=== PATIENT | male | born 1970 | race American Indian/Alaskan Native ===

== ENCOUNTER 2019-08-06 19:06 | Emergency (ER) | payer OTHER ==
[2019-08-06 19:21] VITALS: BP 120/65
[2019-08-06] MEDS ORDERED: dexAMETHasone 20 MG/5 ML VIAL IV ONE (19:40)
[2019-08-06] MEDS ORDERED: FAMOTIDINE 20 MG/2 ML INJ IV ONE (19:40)
[2019-08-06] MEDS ORDERED: diphenhydrAMINE 50 MG/ML VIAL IV ONE (19:40)
[2019-08-06] MEDS ORDERED: SODIUM CHLORIDE 0.9% 1000 ML 1,000 ML IV ONE (19:40)
--- NOTE | 2019-08-06 19:40 | Emergency Department Report ---
Blank Doc - Documentation Documentation: 48-year-old male that presents with rash after taking percocet and Colace. no angioedena. This initial assessment/diagnostic orders/clinical plan/treatment(s) is/are subject to change based on patient's health status, clinical progression and re- assessment by fellow clinical providers in the ED. Further treatment and workup at subsequent clinical providers discretion. Patient/guardians urged not to elope from the ED as their condition may be serious if not clinically assessed and managed. Initial orders include: 1- Patient sent to [facility] for further evaluation and treatment. 2- treatment needed
--- NOTE | 2019-08-06 22:44 | Emergency Department Report ---
ED Allergic Reaction HPI - General Chief complaint: Skin Rash Stated complaint: RASH ALL OVER Time Seen by Provider: 08/06/19 19:39 Source: patient, EMS Mode of arrival: Ambulatory Limitations: No Limitations - History of Present Illness Initial Comments: Patient is a 49-year-old -[place] Citizen male with a history of hypertension who presents to the ED with complaint of acute onset persistent diffuse itchy erythematous maculopapular urticarial rashes throughout for the last 24 hours. Patient is status post hernia surgery 5 days ago and states that he has been taking Percocet, ibuprofen and Colace for the last 5 days after surgery. Patient states that he developed acute onset persistent itchy diffuse erythematous maculopapular rash 24 hours ago and that in the last 12 hours these itching and rashes have worsened diffusely. Patient denies swollen lips, swollen tongue, dysphagia, dysphonia, shortness of breath, nausea, vomiting, diarrhea, cough, abdominal pain, nasal and sinus congestion, facial swelling, dizziness, syncope, fever and chills. MD Complaint: allergic reaction, hives -: Sudden, hour(s) (24) Exposure: medication Symptoms: rash, itching. denies: facial swelling, lip swelling, difficulty swallowing, difficulty breathing, orolingual swelling, hoarseness, syncopy, dizziness, nausea, vomiting, abdominal pain Severity: severe Treatment Prior to Arrival: none Previous Allergy History: none - Related Data Previous Rx's Medication Instructions Recorded Last Taken Type Famotidine [Pepcid] 20 mg PO Q12H #24 tablet 08/06/19 Unknown Rx Prednisone [predniSONE 10 mg 10 mg PO .TAPER #21 tab.ds.pk 08/06/19 Unknown Rx (6-Day Pack, 21 Tabs)] diphenhydrAMINE [Benadryl CAP] 25 mg PO Q6HR PRN #30 capsule 08/06/19 Unknown Rx Allergies Allergy/AdvReac Type Severity Reaction Status Date / Time No Known Allergies Allergy Unverified 08/06/19 19:40 ED Review of Systems ROS: Stated complaint: RASH ALL OVER Other details as noted in HPI Constitutional: denies: chills, fever Eyes: denies: eye pain, eye discharge, vision change ENT: denies: ear pain, throat pain Respiratory: denies: cough, shortness of breath, wheezing Cardiovascular: denies: chest pain, palpitations Endocrine: no symptoms reported Gastrointestinal: denies: abdominal pain, nausea, diarrhea Genitourinary: denies: urgency, dysuria Musculoskeletal: denies: back pain, joint swelling, arthralgia Skin: rash, change in color, pruritus, other (Diffuse erythematous urticarial maculopapular rash). denies: lesions Neurological: denies: headache, weakness, paresthesias Psychiatric: denies: anxiety, depression Hematological/Lymphatic: denies: easy bleeding, easy bruising ED Past Medical Hx - Past Medical History Previous Medical History?: No - Surgical History Past Surgical History?: Yes Additional Surgical History: HERNIA - Social History Smoking Status: Never Smoker Substance Use Type: None - Medications Home Medications: Home Medications Medication Instructions Recorded Confirmed Last Taken Type Famotidine [Pepcid] 20 mg PO Q12H #24 tablet 08/06/19 Unknown Rx Prednisone [predniSONE 10 mg 10 mg PO .TAPER #21 tab.ds.pk 08/06/19 Unknown Rx (6-Day Pack, 21 Tabs)] diphenhydrAMINE [Benadryl CAP] 25 mg PO Q6HR PRN #30 capsule 08/06/19 Unknown Rx ED Physical Exam - General Limitations: No Limitations General appearance: alert, in no apparent distress - Head Head exam: Present: atraumatic, normocephalic, normal inspection - Eye Eye exam: Present: normal appearance, PERRL, EOMI - ENT ENT exam: Present: normal exam, normal orophraynx, mucous membranes moist, TM's normal bilaterally, normal external ear exam - Neck Neck exam: Present: normal inspection, full ROM - Respiratory Respiratory exam: Present: normal lung sounds bilaterally. Absent: respiratory distress, wheezes, rhonchi, chest wall tenderness, accessory muscle use, decreased breath sounds - Cardiovascular Cardiovascular Exam: Present: regular rate, normal rhythm, normal heart sounds. Absent: systolic murmur, diastolic murmur, rubs, gallop - GI/Abdominal GI/Abdominal exam: Present: soft, normal bowel sounds. Absent: distended, tenderness, hyperactive bowel sounds, hypoactive bowel sounds - Extremities Exam Extremities exam: Present: normal inspection, full ROM, normal capillary refill - Back Exam Back exam: Present: normal inspection, full ROM. Absent: tenderness, CVA tenderness (R), CVA tenderness (L), muscle spasm, paraspinal tenderness - Neurological Exam Neurological exam: Present: alert, oriented X3, CN II-XII intact, normal gait, reflexes normal - Psychiatric Psychiatric exam: Present: normal affect, normal mood - Skin Skin exam: Present: warm, dry, intact, normal color, rash (Diffuse erythematous maculopapular urticarial rashes), erythema, urticaria ED Course Vital Signs 08/06/19 19:18 Temperature 98.8 F Pulse Rate 74 Respiratory 18 Rate Blood Pressure 120/65 O2 Sat by Pulse 97 Oximetry ED Medical Decision Making - Medical Decision Making This is a 49-year-old male who presented to the ED with acute onset persistent itchy erythematous maculopapular urticarial rashes after taking medications. In the ED, patient is alert and oriented x3 and is not in any distress. Patient was treated in the ED with steroid, Benadryl and Pepcid. On reevaluation, patient's itching resolved with medications. Patient was discharged home on medications and advised to follow-up with his primary care physician in 5 to 7 days for reevaluation or return to the ED immediately if symptoms get worse. - Differential Diagnosis acute allergic reaction; Urticaria; Irritant dermatitis; Itching Critical care attestation.: If time is entered above; I have spent that time in minutes in the direct care of this critically ill patient, excluding procedure time. ED Disposition Clinical Impression: Itching with irritation, Acute urticaria Acute allergic reaction Qualifiers: Encounter type: initial encounter Qualified Code(s): T78.40XA - Allergy, unspecified, initial encounter Disposition: - TO HOME OR SELFCARE Is pt being admited?: No Does the pt Need Aspirin: No Condition: Stable Instructions: Urticaria (ED), Allergies (ED), Itchy Skin (ED) Additional Instructions: Take medication with food, drink plenty of fluids and follow-up with your primary care physician in 5 to 7 days for reevaluation. Return to the ED immediately if symptoms get worse. Prescriptions: diphenhydrAMINE [Benadryl CAP] 25 mg PO Q6HR PRN #30 capsule PRN Reason: Itching Famotidine [Pepcid] 20 mg PO Q12H #24 tablet Prednisone [predniSONE 10 mg (6-Day Pack, 21 Tabs)] 10 mg PO .TAPER #21 tab.ds.pk Referrals: OBIEKPONCE,ONWURA, MD [Staff Physician] - 7-10 days Time of Disposition: 22:41 Print Language: MALTESE
== END 2019-08-06 23:00 | disposition home or self-care (01) ==
LOC: EDBD 19:06 → ED 19:06
DX: T78.40XA Allergy, unspecified, initial encounter (principal); L30.9 Dermatitis, unspecified; Z98.890 Other specified postprocedural states; X58.XXXA Exposure to other specified factors, initial encounter
CPT/HCPCS: 96374; 96375; 99283; J1100; J1200; J7030